=== PATIENT | male | born 1950 | race Caucasian/White ===

== ENCOUNTER 2017-02-18 20:21 | Inpatient (IN) | payer MEDICARE ==
[2017-02-18] MEDS ORDERED: ACETAMINOPHEN 325 MG TABLET ONE (21:17)
[2017-02-18] MEDS ORDERED: LACTATED RINGERS 1,000 ML ONE ×2 (21:17→22:46)
[2017-02-18 21:20] LABS: VENOUS BLOOD GAS BASE EXCESS 0.4 mmol/L (-2.0-2.0); VENOUS BLOOD GAS HCO3 26.6 mmol/L (22.0-27.0)
[2017-02-18 21:28] LABS: ABSOLUTE NEUTROPHIL COUNT 17.6 K/mm3 (1.8-7.7); BASO % 0.1 % (0.2-1.0); EOS % 0.1 % (0.9-2.9); HEMATOCRIT 48.2 % (32.0-52.0); HEMOGLOBIN 16.1 gm/l (14.0-18.0); IMM NEUT # 0.1 K/mm3 (0-0.2); IMM NEUT% 0.7 % (0-1); LYMPH # 0.6 (1.0-4.8); MEAN CELL VOLUME 84.9 fl (80.0-94.0); MEAN CORPUSCULAR HEMOGLOBIN 28.3 pg (27.0-31.0); MEAN CORPUSCULAR HGB CONC 33.4 g/dl (33.0-37.0); MEAN PLATELET VOLUME 10.9 fl (7.4-10.4); MONO # 0.8 (0.0-0.8); NEUT % 92.1 % (43-75); PLATELET COUNT 142 K/mm3 (130-400); RED CELL DISTRIBUTION WIDTH 13.9 % (11.5-14.5)
[2017-02-18 21:41] LABS: INR 2.79; PROTHROMBIN TIME 30.9 SECONDS (9.3-11.4)
[2017-02-18 21:48] LABS: ALB/GLOB RATIO 1.6 (>1.0); ALBUMIN 4.7 gm/dL (3.5-5.7); CALCIUM 9.6 mg/dL (8.6-10.3); MAGNESIUM 1.7 mg/dL (1.9-2.7)
[2017-02-18] MEDS ORDERED: DAPTOMYCIN 500 MG in SODIUM CHLORIDE 0.9% 100 ML IV ONE (22:00)
[2017-02-18 22:08] LABS: BAND 8 % (0-10); BASOPHIL 0 % (0-1); EOSINOPHIL 0 % (1-3); LYMPHOCYTE 0 % (15-45); MONOCYTE 3 % (4-12); NEUTROPHILS 89 % (43-75); PLATELET ESTIMATE NORMAL (NORMAL); TOTAL CELLS COUNTED 100
[2017-02-18] MEDS ORDERED: ERTAPENEM SODIUM 1 G VIAL ONE (22:46)
[2017-02-18] MEDS ORDERED: NS 0.9% (MINI-BAG PLUS) 100 ML IV ONE (22:47)
[2017-02-18] MEDS ORDERED: MORPHINE SULFATE 2 MG/ML SYRINGE ONE (22:47)
[2017-02-18] MEDS ORDERED: MORPHINE SULFATE 4 MG/ML SYRINGE ONE (22:47)
[2017-02-18] MEDS ORDERED: DIPHENHYDRAMINE HCL 25 MG CAPSULE PO PRN (23:14)
[2017-02-18] MEDS ORDERED: MENTHOL/CETYLPYRD 1 EACH LOZENGE PO PRN (23:14)
[2017-02-18] MEDS ORDERED: MAGNESIUM HYDROXIDE 30 ML UDCUP PO PRN (23:14)
[2017-02-18] MEDS ORDERED: BISACODYL 10 MG SUP PR PRN (23:14)
[2017-02-18] MEDS ORDERED: CALCIUM CARBONATE 500 MG TAB.CHEW PO PRN (23:14)
[2017-02-18] MEDS ORDERED: BISACODYL 5 MG TABLET.EC PO PRN (23:14)
[2017-02-18] MEDS ORDERED: BLISTEX LIPSTICK 1 EACH TP PRN (23:14)
[2017-02-18] MEDS ORDERED: ENOXAPARIN SODIUM 40 MG/0.4 ML SYRINGE SUB-Q SCH (23:15)
[2017-02-18] MEDS ORDERED: METOPROLOL TARTRATE 1 MG/ML 5ML VIAL ONE (23:19)
[2017-02-18] MEDS ORDERED: WARFARIN PER PHARMACY 1 EACH DOSE PO SCH (23:30)
[2017-02-18] MEDS ORDERED: DAPTOMYCIN 500 MG in SODIUM CHLORIDE 0.9% 100 ML IV SCH (23:30)
[2017-02-18] MEDS ORDERED: ERTAPENEM SODIUM 1 G in NS 0.9% (MINI-BAG PLUS) 50 ML IV SCH (23:45)
--- NOTE | 2017-02-19 00:19 | PDOC36 ---
Provider Note Note: Dict [address] LLE Cellulitis Sepsis Sinus Tach hx PAF hx of VTE Chronic Warfarin
[2017-02-19] MEDS ORDERED: CELECOXIB 200 MG CAPSULE ONE (02:10)
[2017-02-19] MEDS ORDERED: ROPINIROLE 1 MG TABLET ONE (02:10)
[2017-02-19] MEDS: CELECOXIB 200 MG CAPSULE PO SCH ×2 (02:17→20:22)
[2017-02-19] MEDS: TRAMADOL HCL 50 MG TABLET PO SCH ×3 (02:17→20:22)
[2017-02-19] MEDS ORDERED: ROPINIROLE 1 MG TABLET PO ONE (02:30)
[2017-02-19] MEDS ORDERED: CELECOXIB 100 MG CAPSULE PO ONE (02:30)
[2017-02-19] MEDS: ACETAMINOPHEN 325 MG TABLET PO PRN ×3 (02:39→17:25)
[2017-02-19 02:56] VITALS: BMI 36.0
[2017-02-19 06:26] LABS: ABSOLUTE NEUTROPHIL COUNT 16.1 K/mm3 (1.8-7.7); BASO % 0.2 % (0.2-1.0); HEMATOCRIT 45.3 % (32.0-52.0); HEMOGLOBIN 15.1 gm/l (14.0-18.0); IMM NEUT # 0.1 K/mm3 (0-0.2); IMM NEUT% 0.6 % (0-1); LYMPH # 0.6 (1.0-4.8); LYMPH % 3.7 % (15-45); MEAN CELL VOLUME 84.2 fl (80.0-94.0); MEAN CORPUSCULAR HEMOGLOBIN 28.1 pg (27.0-31.0); MEAN CORPUSCULAR HGB CONC 33.3 g/dl (33.0-37.0); MEAN PLATELET VOLUME 11.2 fl (7.4-10.4); MONO # 0.5 (0.0-0.8); NEUT % 92.5 % (43-75); PLATELET COUNT 128 K/mm3 (130-400)
--- NOTE | 2017-02-19 07:05 | RAD ---
History: Body aches and fever. Comparison: 07/25/2016. Technique: 2 views Findings: The soft tissue and bony structures are unremarkable. The heart size is appropriate. No infiltrate, effusion or pneumothorax is observed. The hilar and mediastinal structures are normal. Impression: 1. No active intra-thoracic disease.
[2017-02-19 08:23] LABS: ALB/GLOB RATIO 1.5 (>1.0); CALCIUM 9.1 mg/dL (8.6-10.3)
[2017-02-19] MEDS: PANTOPRAZOLE 40 MG TABLET DR PO SCH (08:33)
--- NOTE | 2017-02-19 12:00 | PDOC43 ---
- Subjective Chief Complaint: fever and altered mental status Confusion has resolved, erythema of left leg is improved, eating and drinking well. - Objective Vital Signs Temperature 98.9 F 02/19/17 04:00 Pulse Rate 101 02/19/17 08:00 Respiratory Rate 18 02/19/17 08:00 Blood Pressure 118/77 02/19/17 08:00 O2 Saturation by Pulse Oximetry 99 02/19/17 08:00 Oxygen Delivery Method Room Air Oxygen Flow Rate 0 General: Alert, Oriented x3, Cooperative, No Acute Distress HEENT: Mucous membr. moist/pink Lungs: Clear to Auscultation Bilaterally Cardiovascular: Regular Rate and Rhythm, No Murmur Abdomen: Soft, Normal Bowel Sounds, No Tenderness, No Masses Extremities: Normal Pulses, Other (mild erythema in two areas of left calf, reduced from admit, no knee effusion.), No Edema Skin: Normal Color Neurological: Normal Speech Psych/Mental Status: Normal Mood Laboratory 02/19/17 05:30 02/19/17 05:30 02/19/17 05:30 Estimated GFR 55 L Total Bilirubin 1.6 H Current Medications: Current meds reviewed in EMR. - Problems: Assessment/Plan (1) Cellulitis Qualifiers: Site of cellulitis: extremity Site of cellulitis of extremity: lower extremity Laterality: left Qualifier Code: (L03.116) Cellulitis of left lower limb Status: AcuteAssessment/Plan: presumed bacterial cellulitis without lymphangitis but with severe sepsis (fever , leukocytosis, acute metabolic encephalopathy) present on admit. Treated with daptomycin and ertapenum per ID recommendations due to prior history of same cellulitis last year. Continue current therapy, repeat Blood cx if fever spikes. (2) Atrial fibrillation Qualifiers: Atrial fibrillation type: paroxysmal Qualifier Code: (I48.0) Paroxysmal atrial fibrillation Status: AcuteAssessment/Plan: with intermittent tachycardia due to acute infection/fever. Rate mostly controlled on atenolol, anticoagualted on warfarin. (3) Hypertension Qualifiers: Hypertension type: essential hypertension Qualifier Code: (I10) Essential (primary) hypertension Status: ChronicAssessment/Plan: well controlled on atenolol (4) Obesity (BMI 35.0-39.9 without comorbidity) Status: ChronicAssessment/Plan: complicates care of cellulitis. (5) Acute metabolic encephalopathy Status: AcuteAssessment/Plan: due to cellulitis and sepsis present on admit with confusion, resolved. VTE Prophylaxis Contraindications: Patient noncompliant VTE Prophylaxis: warfarin Disposition: anticipate 48-72 hours in hospital, will likely need PICC and correction abx, discuss with ID on Tuesday.
[2017-02-19] MEDS ORDERED: WARFARIN SODIUM 5 MG TABLET PO ONE (16:00)
[2017-02-19] MEDS: TAMSULOSIN HCL 0.4 MG CAPSULE.DR PO SCH (20:22)
[2017-02-19] MEDS: ROPINIROLE 1 MG TABLET PO SCH (20:23)
[2017-02-19] MEDS ORDERED: WARFARIN SODIUM 5 MG TABLET PO SCH (21:00)
[2017-02-19] MEDS ORDERED: ATENOLOL 50 MG TABLET PO SCH (21:00)
[2017-02-19] MEDS ORDERED: TRAMADOL HCL 50 MG TABLET PO SCH (21:00)
[2017-02-19] MEDS ORDERED: PUMP TUBING ONE (21:58)
[2017-02-19] MEDS: SODIUM CHLORIDE 0.9% 100 ML IV PRN (22:10)
[2017-02-19] MEDS: DAPTOMYCIN 500 MG in SODIUM CHLORIDE 0.9% 100 ML IV SCH (22:10)
[2017-02-19] MEDS: ERTAPENEM SODIUM 1 G in NS 0.9% (MINI-BAG PLUS) 50 ML IV SCH (23:03)
[2017-02-20 06:37] LABS: ABSOLUTE NEUTROPHIL COUNT 5.2 K/mm3 (1.8-7.7); BASO % 0.3 % (0.2-1.0); EOS # 0.2 (0.0-0.5); EOS % 2.2 % (0.9-2.9); HEMATOCRIT 43.8 % (32.0-52.0); HEMOGLOBIN 14.4 gm/l (14.0-18.0); IMM NEUT% 0.4 % (0-1); LYMPH # 1.2 (1.0-4.8); LYMPH % 16.9 % (15-45); MEAN CELL VOLUME 84.2 fl (80.0-94.0); MEAN CORPUSCULAR HEMOGLOBIN 27.7 pg (27.0-31.0); MEAN CORPUSCULAR HGB CONC 32.9 g/dl (33.0-37.0); MEAN PLATELET VOLUME 11.3 fl (7.4-10.4); MONO # 0.6 (0.0-0.8); NEUT % 72.2 % (43-75); PLATELET COUNT 111 K/mm3 (130-400); RED CELL DISTRIBUTION WIDTH 14.2 % (11.5-14.5)
[2017-02-20 06:45] LABS: INR 2.04; PROTHROMBIN TIME 22.3 SECONDS (9.3-11.4)
--- NOTE | 2017-02-20 07:11 | PDOC43 ---
- Subjective Chief Complaint: fever and altered mental status Feels well, no c/o - Objective Vital Signs Temperature 97 F 02/20/17 03:51 Pulse Rate 81 02/20/17 03:51 Respiratory Rate 13 02/20/17 03:51 Blood Pressure 107/70 02/20/17 03:51 O2 Saturation by Pulse Oximetry 98 02/20/17 03:51 Oxygen Delivery Method CPAP Oxygen Flow Rate 0 Intake and Output 02/19/17 02/20/17 02/21/17 06:59 06:59 06:59 Intake Total 1200 Output Total 1025 Balance 175 General: Alert, Oriented x3, Cooperative, No Acute Distress HEENT: Mucous membr. moist/pink Lungs: Clear to Auscultation Bilaterally Cardiovascular: Regular Rate and Rhythm, No Murmur Abdomen: Soft, Normal Bowel Sounds, No Tenderness, No Masses Extremities: Normal Pulses, Other (multiple erythematous patches on left calf, fading), No Edema Neurological: Normal Speech Psych/Mental Status: Normal Mood Laboratory 02/20/17 05:30 02/19/17 05:30 02/20/17 02/19/17 05:30 05:30 MCHC 32.9 L PT 22.3 H Estimated GFR 55 L Total Bilirubin 1.6 H Current Medications: Current meds reviewed in EMR. - Problems: Assessment/Plan (1) Cellulitis Qualifiers: Site of cellulitis: extremity Site of cellulitis of extremity: lower extremity Laterality: left Qualifier Code: (L03.116) Cellulitis of left lower limb Status: AcuteAssessment/Plan: presumed bacterial cellulitis without lymphangitis but with severe sepsis (fever , leukocytosis, acute metabolic encephalopathy) present on admit. Treated with daptomycin and ertapenem per ID recommendations due to prior history of same cellulitis last year. Continue current therapy, repeat Blood cx if fever spikes. Discuss with ID in a.m. when preliminary blood culture results are expected to be ready. (2) Atrial fibrillation Qualifiers: Atrial fibrillation type: paroxysmal Qualifier Code: (I48.0) Paroxysmal atrial fibrillation Status: AcuteAssessment/Plan: with intermittent tachycardia due to acute infection/fever. Rate controlled on atenolol, anticoagualted on warfarin. (3) Hypertension Qualifiers: Hypertension type: essential hypertension Qualifier Code: (I10) Essential (primary) hypertension Status: ChronicAssessment/Plan: well controlled on atenolol (4) Obesity (BMI 35.0-39.9 without comorbidity) Status: ChronicAssessment/Plan: complicates care of cellulitis. (5) Acute metabolic encephalopathy Status: AcuteAssessment/Plan: due to cellulitis and sepsis present on admit with confusion, resolved. (6) KETAN (obstructive sleep apnea) Status: ChronicAssessment/Plan: stable, continue CPAP from home. VTE Prophylaxis Contraindications: Patient noncompliant VTE Prophylaxis: warfarin Disposition: anticipate 48-72 hours in hospital, will likely need PICC and certified medical assistant abx, discuss with ID on Tuesday.
[2017-02-20] MEDS: ACETAMINOPHEN 325 MG TABLET PO PRN ×3 (08:04→20:16)
[2017-02-20] MEDS: TRAMADOL HCL 50 MG TABLET PO SCH ×2 (09:16→20:16)
[2017-02-20] MEDS: PANTOPRAZOLE 40 MG TABLET DR PO SCH (09:16)
[2017-02-20] MEDS ORDERED: WARFARIN SODIUM 5 MG TABLET PO ONE (16:00)
[2017-02-20] MEDS ORDERED: WARFARIN SODIUM 2.5 MG TABLET PO ONE (18:45)
[2017-02-20] MEDS: TAMSULOSIN HCL 0.4 MG CAPSULE.DR PO SCH (20:12)
[2017-02-20] MEDS: CELECOXIB 200 MG CAPSULE PO SCH (20:13)
[2017-02-20] MEDS: ROPINIROLE 1 MG TABLET PO SCH (20:13)
[2017-02-20] MEDS ORDERED: NEBIVOLOL HCL 2.5 MG TABLET PO SCH ×2 (20:30→21:00)
[2017-02-20] MEDS ORDERED: ZOLPIDEM TARTRATE 5 MG TABLET PO PRN (20:31)
[2017-02-20] MEDS: DAPTOMYCIN 500 MG in SODIUM CHLORIDE 0.9% 100 ML IV SCH (22:05)
[2017-02-20] MEDS: ERTAPENEM SODIUM 1 G in NS 0.9% (MINI-BAG PLUS) 50 ML IV SCH (22:37)
[2017-02-21 06:32] LABS: ABSOLUTE NEUTROPHIL COUNT 2.7 K/mm3 (1.8-7.7); BASO % 0.6 % (0.2-1.0); EOS # 0.3 (0.0-0.5); EOS % 5.2 % (0.9-2.9); HEMATOCRIT 43.6 % (32.0-52.0); HEMOGLOBIN 14.2 gm/l (14.0-18.0); IMM NEUT% 0.4 % (0-1); LYMPH # 1.5 (1.0-4.8); MEAN CELL VOLUME 84.8 fl (80.0-94.0); MEAN CORPUSCULAR HEMOGLOBIN 27.6 pg (27.0-31.0); MEAN CORPUSCULAR HGB CONC 32.6 g/dl (33.0-37.0); MEAN PLATELET VOLUME 11.3 fl (7.4-10.4); MONO # 0.6 (0.0-0.8); MONO % 11.8 % (4-12); PLATELET COUNT 124 K/mm3 (130-400); RED CELL DISTRIBUTION WIDTH 14.2 % (11.5-14.5)
[2017-02-21 06:57] LABS: CALCIUM 8.8 mg/dL (8.6-10.3)
[2017-02-21] MEDS ORDERED: LORAZEPAM 2 MG/ML 1ML SDV IV PRN (08:16)
[2017-02-21] MEDS ORDERED: LIDOCAINE 1% (PRES FREE) 5 ML VIAL PF PRN (08:16)
--- NOTE | 2017-02-21 08:46 | PDOC5 ---
ADMIT DATE: 02/18/17 DISCHARGE DATE: 02/21/17 ADMISSION DIAGNOSES: Left lower leg Cellulitis, Sepsis PROCEDURES PERFORMED THIS HOSPITALIZATION: PICC line placement CONSULTATIONS: STEPS infusion HOSPITAL COURSE: This is a 67 year old male with recurrent cellulitis complicated by sepsis physiology and prior requirement of ID consultation and prolonged IV antibiotics. On admission he had mild sepsis with some confusion. Empiric IV Ertapenem and Daptomycin were instituted based on previous ID consultation after failure of standard therapy. Cultures were obtained. He clinically improved within 24hrs and cultures remained negative to date. Historical cultures negative. PICC line placed and outpatient infusion arranged from IV antibiotics which will subsequently be managed by Dr. Nelly Orlando. Vital signs stable, afebrile with stable renal function at time of discharge. Platelets noted to be mildly suppressed from antibiotic therapy. Labs will be monitored a minimum of weekly with results forwarded to Infectious Disease. NO changes were made to his other, routine, daily medications or diagnosis. - Exam Vital Signs Temperature 97.9 F 02/21/17 07:41 Pulse Rate 83 02/21/17 07:41 Respiratory Rate 16 02/21/17 07:41 Blood Pressure 115/77 02/21/17 07:41 O2 Saturation by Pulse Oximetry 95 02/21/17 07:41 Oxygen Delivery Method Room Air Oxygen Flow Rate 0 General: Alert, Oriented x3, Cooperative HEENT: Atraumatic, PERRLA, EOMI Abdomen: Soft, Non-Distended Extremities: Normal Pulses, No Edema, No Tenderness Skin: Intact, Erythema (left lower leg, outlined area with patchy erythema), No Rash, No Induration Neurological: Normal Gait Psych/Mental Status: Normal Affect, Normal Mood - Results Laboratory 02/21/17 05:30 02/21/17 05:30 02/21/17 05:30 [facility] 32.6 L - Problems:Assessment/Plan (1) Cellulitis Qualifiers: Site of cellulitis: extremity Site of cellulitis of extremity: lower extremity Laterality: left Qualifier Code: (L03.116) Cellulitis of left lower limb Status: Acute (2) Atrial fibrillation Qualifiers: Atrial fibrillation type: paroxysmal Qualifier Code: (I48.0) Paroxysmal atrial fibrillation Status: AcuteAssessment/Plan: Rate controlled on atenolol, anticoagualted on warfarin. (3) Hypertension Qualifiers: Hypertension type: essential hypertension Qualifier Code: (I10) Essential (primary) hypertension Status: ChronicAssessment/Plan: well controlled on atenolol (4) KETAN (obstructive sleep apnea) Status: ChronicAssessment/Plan: stable, continue CPAP from home. (5) Anticoagulated on Coumadin Status: Chronic - Disposition: Disposition: PICC and outpatient IV abx - Discharge Plan Instruction Forms: Warfarin Therapy Education Discharge Medications: Celecoxib [Celebrex] 200 mg PO BEDTIME 04/21/16 Ropinirole HCl [Requip 2 mg tablet] 2 mg PO QPM 04/21/16 Tramadol HCl [Tramadol HCl ER] 200 mg PO BEDTIME 04/21/16 Warfarin Sodium [COUMADIN 5 MG TABLET (F)] See Protocol PO BEDTIME 07/22/16 Magnesium Glycinate [Mag Glycinate 100 mg tablet] 100 mg PO DAILY 02/19/17 Tamsulosin HCl [FLOMAX 0.4 MG CAPSULE ([facility])] 0.4 mg PO QPM 02/19/17 Vitamin D3 [VITAMIN D3 1000 UNITS SOFTGEL ([facility])] 5,000 units PO DAILY 02/19/17 Nebivolol HCl [Bystolic 5 mg tablet] 5 mg PO BEDTIME 02/20/17 Daptomycin [CUBICIN 50 MG/ML VIAL ([facility])] 500 mg IV Q24H #0 02/21/17 Ertapenem Sodium [INVANZ 1 GRAM VIAL ([facility])] 1 g IV Q24H #0 02/21/17 Follow-Up: Maximilian Waters MD [Emergency Physician] - As needed (Primary care, ) Nelly Orlando MD [Referring] - In 2-3 days
[2017-02-21] MEDS: TRAMADOL HCL 50 MG TABLET PO SCH (08:57)
[2017-02-21] MEDS: PANTOPRAZOLE 40 MG TABLET DR PO SCH (08:57)
[2017-02-21] MEDS: MAGNESIUM GLYCINATE 100 MG PO SCH ×2 (10:45→10:46)
--- NOTE | 2017-02-21 11:21 | HP ---
EHSAN ROB [id number] : 1950 DATE OF ADMISSION: February 18, 2017 CHIEF COMPLAINT: Fever, chills, confusion. HISTORY OF PRESENT ILLNESS: Mr. Rob is a 67-year-old male who reports that he began feeling generalized malaise and myalgias on Tuesday. He initially attributed this to a dietary change. Today around noon, he began to develop pain all over which progressed to chills, sweats and confusion. For this reason, he presented to the emergency room. He denies any leg pain or noted any changes in his skin but does note that once the emergency room doctor evaluated him and pointed out an area of redness that his lower left leg had become red which he believes is new today. I did discuss the history with his as he was mildly confused and somewhat of a poor historian at the bedside. She states that he has had cellulitis in various areas of his body multiple times over his lifetime and generally develops a fairly sudden fever, infection and confusion. The last time he was hospitalized for this was in June of 2016 here at [facility] where he had prolonged course of empiric antibiotics to include vancomycin without significant improvement. She states that he was discharged and followed up as an outpatient with infectious disease in [place], Dr. Orlando. At that time he was put on daptomycin and ertapenem, apparently through their infusion center. It is not clear of the duration of therapy. He has not had antibiotics to her knowledge since then. She does say that he did have a routine followup with infectious disease, Dr. Orlando, about two weeks ago where nothing new to her knowledge was discussed. Per report from the emergency room physician, he did speak with the on-call physician for the infectious disease group who agreed with empiric ertapenem and daptomycin. In addition to the above complaints, patient states that he has had loose stools for several days on average one to two stools a day with no visible blood. He also has mild abdominal cramping, more on the right flank than the left. REVIEW OF SYSTEMS: Per History of Present Illness. Other systems reviewed and acutely negative. PAST MEDICAL HISTORY: 1. Recurrent cellulitis of the left lower extremity, right lower extremity, and scalp. 2. Paroxysmal atrial fibrillation with rapid ventricular response. 3. Snf anticoagulation with warfarin due to history of venous thromboembolic disease. 4. 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 5. History of obstructive sleep apnea with home CPAP. 6. Hypertension. 7. Osteoarthritis with chronic pain. 8. Benign prostatic hypertrophy. 9. Restless leg syndrome. PAST SURGICAL HISTORY: 1. Laparoscopic cholecystectomy. 2. Total right knee replacement, May,. 3. Total left knee replacement, August,. 4. Bilateral carpal tunnel release. 5. Tonsillectomy and adenoidectomy. FAMILY HISTORY: Significant for pancreatic cancer. SOCIAL HISTORY: Patient is a lifelong nonsmoker, nondrinker. seven grown adult children. ALLERGIES: 1. DUST. 2. CEDAR SHAVINGS. 3. FLUOROQUINOLONE DUE TO CRAMPING. HOME MEDICATIONS: Obtained from patient's transcribed list which is somewhat illegible. 1. Warfarin 5 mg daily. 2. Tramadol ER 100 mg or 200 mg, frequency not specified. 3. Tamsulosin 0.4 mg. 4. Ropinirole 2 mg. 5. Atenolol 50 mg. 6. Celebrex 200 mg. 7. Magnesium four tablets 100 mg. 8. Vitamin D 5000 units. 9. PheniTropic sleep aid. 10. Possible beta regina, nebivolol. PERTINENT LABS: CBC on February 18, 2017 was reviewed. VBG on February 18, 2017 reviewed. Coagulation studies February 18, 2017 reviewed. CMP February 18, 2017 reviewed. Influenza testing on February 18, 2017 reviewed. DIAGNOSTIC STUDIES: No imaging. MICROBIOLOGY: Anaerobic and aerobic blood cultures times two sets are pending. Previous cultures from June,, were reviewed. PHYSICAL EXAM: VITAL SIGNS: Blood pressure 133/85, heart rate 142, respiratory rate 20, temperature 102.5, O2 saturation 96% on room air. GENERAL: This is a well-nourished, well-developed male in no acute distress, alert and oriented with mild confusion. Difficulty with recall and tangential. HEENT: Normocephalic, atraumatic. Extraocular muscles are intact. Eyes, pupils equal, round and reactive to light and accommodation. LUNGS: Clear to auscultation bilaterally, no wheezes, rhonci or crackles. CARDIOVASCULAR: Regular rhythm with tachycardic rate, no murmur. ABDOMEN: Soft, nontender, nondistended with normoactive bowel sounds. EXTREMITIES: No clubbing, cyanosis or edema. SKIN: Left lower extremity approximately two inches below the knee joint on the lateral margin is an area of erythema. The area is irregular and flattened with no visible skin breaks. There is a smaller area a bit more distal on the mcdaniel. No other notable skin abnormalities on exam. ASSESSMENT: 1. Left lower extremity cellulitis with history of recurrent cellulitis complicated by sepsis in the past. Given his sepsis, we will provide aggressive empiric coverage with the agents that previously obtained a response, daptomycin and ertapenem. We will contact the infectious disease group extension educator physician again the morning to confirm that this was indeed the plan. However, it is documented by the emergency room physician that he spoke with someone this evening regarding antibiotics, and they concurred with that plan. 2. Sepsis due to skin infection. No documentation of prior MRSA available in the chart and patient and deny previous isolation like procedures. Patient's lactate is normal. We will treat the underlying infection, provide supportive care and reassess in the morning. 3. Sinus tachycardia, appropriate given the underlying sepsis physiology. We will maintain patient on telemetry and monitor for atrial fibrillation which he has had during episodes of sepsis in the past. 4. Pain, acute on chronic. We will provide his home medications of Celebrex and Tramadol. 5. Systemic anticoagulation with warfarin. Ordered pharmacy to monitor. 6. History of venous thromboembolism and hypercoagulable state. Patient's INR goal is 2 to 3, which he has met at this time. We will continue to monitor. 7. The patient will be admitted to step down this evening given his sepsis, tachycardia and history of atrial fibrillation with rapid ventricular response. We anticipate he will be inpatient for several days as his sepsis physiology hopefully resolves and he continues to receive aggressive IV antibiotic therapy. 8. Patient is FULL CODE. 9. His deep venous thrombosis prophylaxis is currently covered by a therapeutic INR.
--- NOTE | 2017-02-21 13:08 | RAD ---
02/21/2017 1:03 PM CXR FOR PLACEMENT/LINE or TUBE History: Right-sided PICC placement question of catheter tip location. Comparison: 02/18/2017 Findings: Single AP view of the chest is obtained. The lungs are clear with out effusion or pneumothorax. The cardiomediastinal silhouette is unremarkable.. The osseous structures are intact.. Right-sided PICC terminates within the upper SVC. IMPRESSION: Right-sided PICC as above. Findings were called to Alysia the PICC nurse at approximately 1305 hours on 02/20/2017.
--- NOTE | 2017-02-21 13:45 | RAD ---
02/21/2017 1:40 PM CXR FOR PLACEMENT/LINE or TUBE History: Right-sided PICC placement question of catheter tip location Comparison: Plain films earlier on the same day Findings: Single AP view of the chest is obtained. The lungs are clear with out effusion or pneumothorax. The cardiomediastinal silhouette is unremarkable.. The osseous structures are intact.. Right-sided PICC terminates at the level of the atriocaval junction. IMPRESSION: Right-sided PICC as above. Exam is otherwise unremarkable. Findings were called to Alysia the PICC nurse at approximately 1340 hours on 02/21/2017.
[2017-02-21] MEDS ORDERED: PUMP TUBING ONE (13:49)
[2017-02-21] MEDS: SODIUM CHLORIDE 0.9% 100 ML IV PRN (13:59)
[2017-02-21] MEDS: ERTAPENEM SODIUM 1 G in NS 0.9% (MINI-BAG PLUS) 50 ML IV SCH (13:59)
[2017-02-21] MEDS: DAPTOMYCIN 500 MG in SODIUM CHLORIDE 0.9% 100 ML IV SCH (14:45)
[2017-02-21 15:31] VITALS: BP 116/74
[2017-02-21] MEDS ORDERED: WARFARIN SODIUM 7.5 MG TABLET PO SCH (16:00)
== END 2017-02-21 15:40 | disposition home or self-care (01) | DRG 872 ==
LOC: ED 20:21 → ICU 22:16 → MS 02-19 18:00
PROVIDERS: ADMIT Internal Medicine Hematology & Oncology; ATTEND Internal Medicine Hematology & Oncology
PROC: 02HV33Z Insertion of Infusion Device into Superior Vena Cava, Percutaneous Approach (ICD-10-PCS; principal; 2017-02-21)
DX: A41.9 Sepsis, unspecified organism (principal); L03.116 Cellulitis of left lower limb; I48.0 Paroxysmal atrial fibrillation; I10 Essential (primary) hypertension; G47.33 Obstructive sleep apnea (adult) (pediatric); Z79.01 Long term (current) use of anticoagulants; R00.0 Tachycardia, unspecified; G89.29 Other chronic pain